=== PATIENT | male | born 1980 | race Caucasian/White ===

== ENCOUNTER → 2022-04-30 10:30 | Outpatient (CLI) | payer SELFPAY ==
[2022-04-30 18:53] LABS: Thyroid Stimulating Hormone 1.17 uIU/mL (0.465-4.68)
[2022-04-30 19:12] LABS: Vitamin B12 346 pg/mL (239-931)
--- NOTE | 2022-05-20 12:17 | PC.NURSE ---
Spoke with patient again today about insurance status. He asked for me to call back around the first of June about the HST.
== END ==
PROVIDERS: PCP Family Medicine; Visit Provider Family Medicine
DX: F41.0 Panic disorder [episodic paroxysmal anxiety] (principal)
CPT/HCPCS: 82607; 84443

== ENCOUNTER → 2022-07-30 18:28 | Outpatient (CLI) | payer OTHER, SELFPAY | PROVIDERS: PCP Family Medicine; Visit Provider Family Medicine | DX: G47.30 Sleep apnea, unspecified (principal); R06.83 Snoring | CPT/HCPCS: 95806 ==